=== PATIENT | female | born 1990 ===

== ENCOUNTER 2019-03-23 05:00 | Day surgery (SDC) | payer OTHER ==
[2019-03-23] MEDS ORDERED: Tylenol #3 PO (08:54)
[2019-03-23] MEDS ORDERED: DOXYCYCLINE HY100 M3 PO (08:54)
== END 2019-03-23 15:01 | disposition home or self-care (01) ==
LOC: CIR.AMB 05:00
DX: N84.0 Polyp of corpus uteri (principal); D25.0 Submucous leiomyoma of uterus